=== PATIENT | male | born 1990 | race Caucasian/White ===

== ENCOUNTER 2018-01-15 01:13 | Emergency (ER) | payer BC ==
[2018-01-15] MEDS ORDERED: Diphtheria,Pertussis(Acell),Tetanus Vaccine 0.5 ML SDV IM ONE (02:09)
--- NOTE | 2018-01-15 02:21 | EDM.PDOC ---
ED HPI GENERAL MEDICAL PROBLEM - General Chief Complaint: Laceration Stated Complaint: CUT LT POINTER FINGER Time Seen by Provider: 01/15/18 01:37 Source of Information: Reports: Patient History Limitations: Reports: No Limitations - History of Present Illness INITIAL COMMENTS - FREE TEXT/NARRATIVE: This patient cut his left index finger shortly prior to arrival with a knife while opening a package. Tetanus not up-to-date - Related Data Allergies Allergy/AdvReac Type Severity Reaction Status Date / Time No Known Allergies Allergy Verified 01/15/18 01:31 Home Meds: Home Meds NK [No Known Home Meds] 01/15/18 [History] Past Medical History - Past Health History Medical/Surgical History: Denies Medical/Surgical History Social & Family History - Tobacco Use Smoking Status *Q: Unknown Ever Smoked ED ROS GENERAL - Review of Systems Review Of Systems: ROS reveals no pertinent complaints other than HPI. ED EXAM, SKIN/RASH Exam: See Below Exam Limited By: No Limitations General Appearance: Alert, Mild Distress Extremities: Other (There is approximately a 1.5 cm transverse laceration to the left index finger palmar surface just a few millimeters proximal to the DIP joint the wound is clean. Neurovascular tendon all intact) Course - Vital Signs Last Recorded V/S: Last Vital Signs Temp 36.6 C 01/15/18 01:28 Pulse 62 01/15/18 01:28 Resp 14 01/15/18 01:28 BP 136/63 01/15/18 01:28 Pulse Ox 96 01/15/18 01:28 - Orders/Labs/Meds Orders: Active Orders 24 hr Category Date Time Status Vaccines to be Administered [RC] PER UNIT ROUTINE Care 01/15/18 02:09 Active Meds: Medications Discontinued Medications Generic Name Dose Route Start Last Admin Trade Name Freq PRN Reason Stop Dose Admin Diphtheria/Tetanus/Acell Pertussis 0.5 ml 01/15/18 02:09 Adacel IM 01/15/18 02:10 .ONCE ONE Lidocaine HCl 5 ml 01/15/18 01:43 Xylocaine-Mpf 1% INJECT 01/15/18 01:44 ONETIME ONE - Re-Assessments/Exams Free Text/Narrative Re-Assessment/Exam: 01/15/18 02:19 Procedure laceration repair: The wound was anesthetized with about 3 mL of 1% plain lidocaine the surrounding area was then scrubbed with gauze and saline flushed thoroughly with saline by syringe. The wound was then closed with a running 4-0 nylon stitch. Sterile dressing applied wound care discussed Departure - Departure Time of Disposition: 02:20 Disposition: Home, Self-Care 01 Condition: Fair Clinical Impression: Finger laceration - Discharge Information Referrals: PCP,None [Primary Care Provider] - Additional Instructions: Wash with soap and water daily. You may apply an antibiotic ointment and keep covered with a dressing. You may work but should keep the dressing clean and dry. See your doctor or health care provider for suture removal in 10 days - My Orders Last 24 Hours: My Active Orders 01/15/18 02:09 Vaccines to be Administered [RC] PER UNIT ROUTINE - Assessment/Plan Last 24 Hours: My Active Orders 01/15/18 02:09 Vaccines to be Administered [RC] PER UNIT ROUTINE
== END 2018-01-15 02:32 | disposition home or self-care (01) ==
LOC: JP.ED 01:13
DX: S61.211A Laceration without foreign body of left index finger without damage to nail, initial encounter (principal); W26.0XXA Contact with knife, initial encounter; Z23 Encounter for immunization
CPT/HCPCS: 12001; 90471; 90715; 99283-25

== ENCOUNTER 2020-08-28 16:24 | Emergency (ER) | payer SELFPAY ==
--- NOTE | 2020-08-28 17:14 | EDM.PDOC ---
ED HPI GENERAL MEDICAL PROBLEM - General Chief Complaint: Gastrointestinal Problem Stated Complaint: COVID SYMPTOMS Time Seen by Provider: 08/28/20 17:13 Source of Information: Reports: Patient, RN Notes Reviewed History Limitations: Reports: No Limitations - History of Present Illness INITIAL COMMENTS - FREE TEXT/NARRATIVE: 29-year-old gentleman presents emergency department today with concerns about Covid. He has been sneezing was nauseated made himself vomit. Did have a positive exposure to a coworker with COVID-19, no fevers - Related Data Allergies Allergy/AdvReac Type Severity Reaction Status Date / Time No Known Allergies Allergy Verified 08/28/20 16:55 Home Meds: Home Meds NK [No Known Home Meds] 01/15/18 [History] Past Medical History - Past Health History Medical/Surgical History: Denies Medical/Surgical History - Infectious Disease History Infectious Disease History: Reports: Chicken Pox Social & Family History - Tobacco Use Tobacco Use Status *Q: Never Tobacco User - Caffeine Use Caffeine Use: Reports: None - Recreational Drug Use Recreational Drug Use: No ED ROS GENERAL - Review of Systems Review Of Systems: See Below Constitutional: Denies: Fever, Chills HEENT: Reports: Other (Sneezing) Respiratory: Reports: No Symptoms Cardiovascular: Reports: No Symptoms GI/Abdominal: Reports: Nausea, Vomiting (Self-induced) ED EXAM, GENERAL - Physical Exam Exam: See Below Exam Limited By: No Limitations General Appearance: Alert, WD/WN, No Apparent Distress Respiratory/Chest: No Respiratory Distress, Lungs Clear, Normal Breath Sounds, No Accessory Muscle Use, Chest Non-Tender Cardiovascular: Regular Rate, Rhythm, No Murmur Course - Vital Signs Last Recorded V/S: Last Vital Signs Temp 99.3 F 08/28/20 16:54 Pulse 94 08/28/20 16:54 Resp 16 08/28/20 16:54 BP 143/61 H 08/28/20 16:54 Pulse Ox 97 08/28/20 16:54 - Orders/Labs/Meds Orders: Active Orders 24 hr Category Date Time Status CORONAVIRUS COVID-19, [facility] 08/28/20 17:13 Ordered Departure - Departure Time of Disposition: 17:15 Disposition: Home, Self-Care 01 Condition: Fair Clinical Impression: Viral syndrome - Discharge Information Instructions: Viral Respiratory Infection, [id number] Referrals: PCP,None [Primary Care Provider] - Forms: ED Department Discharge Additional Instructions: Recommend self quarantine, symptomatic care, please followup with your primary care provider in 3-5 days if not better, please call return to the emergency department with worsening of symptoms. Sepsis Event Note (ED) - Evaluation Sepsis Screening Result: No Definite Risk - Focused Exam Vital Signs: Vital Signs Temp Pulse Resp BP Pulse Ox 08/28/20 16:54 99.3 F 94 16 143/61 H 97 08/28/20 16:53 99.3 F 94 16 143/61 H 97 - My Orders Last 24 Hours: My Active Orders 08/28/20 17:13 CORONAVIRUS COVID-19, [facility] Urgent - Assessment/Plan Last 24 Hours: My Active Orders 08/28/20 17:13 CORONAVIRUS COVID-19, [facility] Urgent Plan: Assessment Acuity = acute Site and laterality = viral syndrome Etiology = unknown Manifestations = none Location of injury = Home Lab values = Covid pending Plan Recommend self-isolation, symptomatic care return to the emergency department worsening of symptoms This note was dictated using [employer] voice recognition software please call with any questions on syntax or grammar.
== END 2020-08-28 17:30 | disposition home or self-care (01) ==
LOC: JP.ED 16:24
DX: B34.9 Viral infection, unspecified (principal); Z20.822 Contact with and (suspected) exposure to COVID-19
CPT/HCPCS: 99283; U0002